=== PATIENT | female | born 1990 | race Caucasian/White ===

== ENCOUNTER 2018-01-17 21:02 | Emergency (ER) | payer OTHER ==
[~2018-01-17] VITALS: Ht 165.1 cm; Wt 103.4 kg
[~2018-01-17 21:02] MED LIST: AMITRIPTYLINE H25 MG PO; ANTIDEPRESSANT; BACTRIM DS TAB1 EACH PO; BIRTHCONTROL PILL; NAPROXEN500 MG PO; TOPAMAX25 MG PO
[2018-01-17] MEDS ORDERED: PRENATAL DHA200 MG PO (21:17)
[2018-01-17] MEDS ORDERED: CLINDAMYCIN HC300 MG PO (21:32)
== END 2018-01-17 21:42 | disposition home or self-care (01) ==
LOC: ED 21:02
DX: O99.713 Diseases of the skin and subcutaneous tissue complicating pregnancy, third trimester (principal); L73.2 Hidradenitis suppurativa; O99.333 Smoking (tobacco) complicating pregnancy, third trimester; F17.200 Nicotine dependence, unspecified, uncomplicated; Z88.1 Allergy status to other antibiotic agents; Z88.0 Allergy status to penicillin; Z79.899 Other long term (current) drug therapy; Z3A.33 33 weeks gestation of pregnancy
CPT/HCPCS: 99283

== ENCOUNTER 2018-07-14 05:40 | Day surgery (SDC) | payer OTHER ==
[~2018-07-14] VITALS: Ht 165.1 cm; Wt 99.8 kg
[~2018-07-14 05:40] MED LIST changes: +CLINDAMYCIN HC300 MG PO; +PRENATAL DHA200 MG PO
--- NOTE | 2018-07-14 08:50 | NUR ---
07/14/18 0849 Veto,Annalee 0844 PT ARRIVED TO PACU ON 6L VIA MASK, RESP EVEN AND UNLBAORED. PT REACTIVE TO TACTILE STIMULI. PT REORINTED TO PACU. 0848 PT ASLEEP AND SMALL AMOUNT OF SNORNG NOTED.
--- NOTE | 2018-07-14 09:19 | NUR ---
PT REATING IN BED, ALERT, ORIENTED AND SUPPORTED BY HER MOTHER. OUTLINED SOME OF WHAT TO EXPECT FOR THE DAY-DR ROA IN WITH BABITA SOLER. EXTENDED A BLESSING, WILL FOLLOW NEEDED
--- NOTE | 2018-07-14 09:32 | NUR ---
0910- PT RETURNS TO DS ROOM 4 FROM PACU ON RA. PT AWAKE AND ORIENTED AND DENIES NAUSEA. PT REPORTS 4/10 TOLERABLE PAIN. GERA DRAIN IN PLACE WNL DRAINING SANGINOUS FLUID. SURGICAL DRESSING ON LOWER ABD C/D/I. PT PROVIDED WITH WATER, JUICE, AND PUDDING. CALL LIGHT WITHIN REACH. 0915- PT'S MOTHER AT BEDSIDE. PT SALINE LOCKED AND DANGLES AT BEDSIDE AND TOLERATES. DENIES NAUSEA, LIGHTHEADEDNESS. PT AMBULATES TO BATHROOM AND IS ABLE TO VOID 200 ML CLEAR YELLOW URINE. PT BACK TO BED WITH SCDS ON AND APPLIED. CALL LIGHT WITHIN REACH
[2018-07-14] MEDS ORDERED: NORCO 10-325 T1 EACH PO (09:47)
--- NOTE | 2018-07-14 10:32 | NUR ---
1010- VSS. PT TOLERATES PO FLUIDS AND FOOD AND DENIES NAUSEA. PT REPORTS 3/10 TOLERABLE PAIN AND DENIES NEED FOR PAIN MEDICATION. SURGICAL DRESSING C/D/I. GERA DRAIN EMPTIED FOR 10 ML. EDUCATION PROVIDED TO PT ON HOW TO EMPTY DRAIN ONCE HOME. PT DEMONSTRATES PROCEDURE TO RN. 1015- IV DC'D WNL. DC INSTRUCTIONS WITH PRECAUTIONS PROVIDED TO PT. PT VERBALIZES UNDERSTANDING AND DENIES FURTHER QUESTIONS. PRESCRIPTION GIVEN. ADDITIONAL [employer] EDUCATION PACKETS PROVIDED. 1030- PT TRANSPORTED IN WHEELCHAIR TO VEHICLE DRIVEN BY MOTHER. PT IN STABLE CONDITION.
--- NOTE | 2018-07-14 14:55 | OR ---
[facility] [address] [place], [place] [address] Signed DATE OF OPERATION: 07/14/2018 SURGEON: Nilam Roa MD PREOPERATIVE DIAGNOSIS: Chronic recurring suprapubic hidradenitis suppurativa. POSTOPERATIVE DIAGNOSIS: Chronic recurring suprapubic hidradenitis suppurativa. PROCEDURES: 1. Excision of suprapubic hidradenitis suppurativa. 2. Placement of subcutaneous drain. ESTIMATED BLOOD LOSS: None. INDICATIONS: Quinn is a 27-year-old female with a body mass index of 37. She just had her son about 4 months ago via . She has had at least 8 years of trouble with recurring chronic suprapubic hidradenitis. She has used Hibiclens soap and various antibiotics. She has now developed multiple antibiotic allergies. She has been following along carefully with her primary care provider. She has had multiple areas lanced over time. They simply will not heal. She has been on Bactrim and Hibiclens and is continuing to have progressive worsening of the hidradenitis. Finally, she was asked to see me as a local general surgeon. I had met with Quinn and her mother in the office. With our director global medical affairs on room, we can see she has chronic acute on chronic hidradenitis suppurativa in the superior aspect of the pubic area and underneath the pannus of her lower abdomen. I explained to Quinn it is common that these track underneath the skin and they developed granulation tissue and they never heal unless it was excised. We could use a curvilinear transverse incision and we had excised that area of skin and bring that back together similar to a panniculectomy. I reviewed that with her in detail. She understands expected intraop and postop course. There is risk to that surgery including, but not limited to bleeding, infection, scarring, change in contour of the skin as well as recurrent hidradenitis in the same or other locations. In addition, we did talk about a subcutaneous drain given the required length of that incision. She and her mother expressed understanding and wished to proceed. PROCEDURE NOTE: I met with Quinn and her mom in our preop area. With our nurse in the room, we were able Electronically Signed By: NILAM ROA MD 07/14/18 1455 PATIENT NAME: QUINN CUELLAR OPERATIVE REPORT DATE OF : 89 REPORT #: [id number] PHYSICIAN: NILAM ROA MD PCP: JONO WILLSON MD REPORT IS CONFIDENTIAL AND NOT TO BE RELEASED WITHOUT AUTHORIZATION [facility] [address] [place], [place] [address] Signed to identify the area of the suprapubic hidradenitis. We marked that appropriately. After this, Quinn was taken into the operating room and placed in the supine position under general endotracheal tube anesthesia. She was given preoperative antibiotics along with subcutaneous heparin. SCDs were utilized. She was then prepped and draped in the usual sterile fashion. We measured out an incision a little more than 4 cm wide by 26 cm in length. This was marked appropriately with the help of a silk suture in our hemostats. After this, the incision was developed initially with a 20-blade knife and then down through the subcutaneous tissues to the abdominal wall with the help of the cautery. The adipose tissue was excised in the shape of V, so that when the skin was brought together, there was very minimal if any space. We had marked that specimen appropriately and passed it off the field. We injected local anesthetic into her abdominal wall. The wound was irrigated and suctioned out until clear. All hemostasis was excellent. A #7 flat Korey drain was laid along the full length of incision and brought out through the right lateral skin. This was held in place with a 2-0 nylon suture. We then closed the dermis with multiple interrupted 3-0 subcuticular Monocryl sutures. The skin edges were reapproximated with a running 6-0 fast absorbing plain gut suture. Dry gauze and tape were then applied. Quinn was then awakened from anesthesia, extubated in the OR, and taken to recovery room in stable condition. Nilam Roa MD ALB/MODL /[id number] cc: MD Jono Arellano MD Copies: NILAM ROA MD, RUSSELL BARR MD ~ Electronically Signed By: NILAM ROA MD 07/14/18 1455 PATIENT NAME: QUINN CUELLAR OPERATIVE REPORT DATE OF : 89 REPORT #: [id number] PHYSICIAN: NILAM ROA MD PCP: JONO WILLSON MD REPORT IS CONFIDENTIAL AND NOT TO BE RELEASED WITHOUT AUTHORIZATION
== END 2018-07-14 10:30 | disposition home or self-care (01) ==
LOC: DS 05:40
PROVIDERS: Colon & Rectal Surgery
PROC: 0JB80ZZ Excision of Abdomen Subcutaneous Tissue and Fascia, Open Approach (ICD-10-PCS; principal; 2018-07-14 06:45)
DX: L73.2 Hidradenitis suppurativa (principal); E66.9 Obesity, unspecified; J45.909 Unspecified asthma, uncomplicated; F17.210 Nicotine dependence, cigarettes, uncomplicated; Z88.0 Allergy status to penicillin; Z88.1 Allergy status to other antibiotic agents; Z79.899 Other long term (current) drug therapy; Z68.36 Body mass index [BMI] 36.0-36.9, adult
CPT/HCPCS: 00400; 88305; J1100; J1644; J1885; J2250; J2405; J2704; J3010; J7120

== ENCOUNTER 2019-04-22 16:23 | Emergency (ER) | payer OTHER ==
[~2019-04-22] VITALS: Ht 165.1 cm; Wt 99.8 kg
[~2019-04-22 16:23] MED LIST changes: +NORCO 10-325 T1 EACH PO
--- OUTSIDE RECORDS SUMMARY | 2019-04-22 16:28 | XMS ---
PreManage Notification: QUINN CUELLAR Security Personal Fitness Manager Events No recent Security Events currently on file [facility] CARE PROVIDERS CHARLETTE BONDS [facility] Current PHONE: Unknown Shaan Davis [facility] Current PHONE: Unknown Luis has no Care Guidelines for this patient. Beto VISIT COUNT (12 MO.) 1 ANEL Boles TOTAL 1 NOTE: Visits indicate total known visits. ED/UCC VISIT TRACKING (12 MO.) 04/22/2019 16:26 ANEL Moreno OR TYPE: Emergency COMPLAINT: - CHEST PAIN INPATIENT VISIT TRACKING (12 MO.) No inpatient visits to display in this time frame [email or web address]
[2019-04-22] MEDS ORDERED: MIRENA1 EACH TD (17:12)
== END 2019-04-22 17:40 | disposition home or self-care (01) ==
LOC: ED 16:23
DX: J02.9 Acute pharyngitis, unspecified (principal); R53.81 Other malaise; M79.10 Myalgia, unspecified site; B34.9 Viral infection, unspecified; F32.9 Major depressive disorder, single episode, unspecified; G43.909 Migraine, unspecified, not intractable, without status migrainosus; F17.200 Nicotine dependence, unspecified, uncomplicated; Z88.0 Allergy status to penicillin; Z88.1 Allergy status to other antibiotic agents; Z79.899 Other long term (current) drug therapy
CPT/HCPCS: 99283